=== PATIENT | male | born 1940 | race Caucasian/White ===

== ENCOUNTER 2019-07-22 12:28 | Inpatient (IN) | payer OTHER ==
[~2019-07-22] VITALS: Ht 175.3 cm; Wt 78.5 kg
[~2019-07-22 12:28] MED LIST: ALBU90OI; ALBU90OI INH; ASPI81CH; FLUSAL2505; FURO40; HYDACE5; POTCHL20ER; SIMV10 PO; SPIRIVA INHALER; TIOT18 IH
[2019-07-22] MEDS ORDERED: DABI150C PO (12:48)
[2019-07-22] MEDS ORDERED: TAMSULOSIN HCL0.4 M1 PO (12:48)
[2019-07-22] MEDS ORDERED: METFORMIN HCL500 M2 PO (12:49)
[2019-07-22] MEDS ORDERED: BREO ELLIPTA 21 EACH INH (13:04)
[2019-07-22] MEDS ORDERED: BEVESPI AEROS10.7 GM INH (13:05)
[2019-07-22] MEDS ORDERED: ROSUVASTATIN CA20 MG PO (13:06)
[2019-07-22] MEDS ORDERED: MONT10T PO (13:06)
[2019-07-22] MEDS ORDERED: VITAMIN B-121000 MCG PO (13:07)
[2019-07-22 15:24] LABS: Alanine Aminotransfer (ALT/SGP 14 U/L (12-78); Albumin, Blood 3.3 g/dL (3.4-5.0); Albumin/Globulin Ratio 0.8 (0.8-1.8); Alk Phos 60 U/L (50-136); Anion Gap 5 mmol/L (6-16); Aspartate Aminotrans (AST/SGOT 16 U/L (12-37); Bilirubin, Total 0.9 mg/dL (0.1-1.0); Blood Urea Nitrogen 17 mg/dL (8-24); Bun/Creatinine Ratio 21.1 (12.0-20.0); CO2, Blood 28 mmol/L (21-32); Chloride, Blood 102 mmol/L (98-108); Creatinine, Blood 0.81 mg/dL (0.60-1.20); Globulin, Blood 4.3 g/dL (2.2-4.0); Glomerular Filtration Rate >60 (60-); Glucose, Blood 128 mg/dL (70-99); Sodium, Blood 135 mmol/L (136-145); Total Protein, Blood 7.6 g/dL (6.4-8.2)
[2019-07-22 15:36] LABS: Troponin I <0.015 ng/mL (0.000-0.040)
[2019-07-22 15:44] LABS: BASOPHILS ABSOLUTE AUTO 0.07 K/mm3 (0.00-0.23); BASOPHILS PERCENT AUTO 1 % (0-2); EOSINOPHILS ABSOLUTE AUTO 0.06 K/mm3 (0.00-0.68); EOSINOPHILS PERCENT AUTO 0 % (0-6); Hematocrit 47.1 % (37.0-53.0); Hemoglobin 14.9 g/dL (13.5-17.5); IMMATURE GRAN ABSOLUTE AUTO 0.07 K/mm3 (0.00-0.10); IMMATURE GRAN PERCENT AUTO 1 % (0-1); LYMPHOCYTES ABSOLUTE AUTO 1.32 K/mm3 (0.84-5.20); LYMPHOCYTES PERCENT AUTO 9 % (21-46); MONOCYTES ABSOLUTE AUTO 1.56 K/mm3 (0.16-1.47); MONOCYTES PERCENT AUTO 10 % (4-13); Mean Corpuscular HGB 28.4 pg (26.0-34.0); Mean Corpuscular HGB Conc 31.6 g/dL (31.5-36.5); Mean Corpuscular Volume 90 fL (80-100); NEUTROPHILS ABSOLUTE AUTO 12.03 K/mm3 (1.96-9.15); NEUTROPHILS PERCENT AUTO 80 % (41-73); RDW Coefficient Variation 13.3 % (11.7-14.2); RDW Standard Deviation 43.9 fL (35.1-46.3); Red Blood Cell Count 5.25 M/mm3 (4.30-5.90); White Blood Cell Count 15.11 K/mm3 (4.00-11.30)
[2019-07-22 15:46] LABS: Base Excess Venous 2.5 mmol/L; Bicarbonate Venous 25.4 mmol/L (24.0-30.0); PCO2 Venous 56.3 mmHg (38-42); PO2 Venous 96.9 mmHg (38-42); pH Blood Venous 7.32 (7.34-7.37)
[2019-07-22 15:57] LABS: Mean Platelet Volume 10.1 fL (9.1-12.4); Platelet Count 250 K/mm3 (150-400)
--- NOTE | 2019-07-22 19:15 | NUR ---
ASSUMED CARE NOTE. ASSUMED CARE OF PT AT 191, RECEVIED REPORT FROM SHIMON CASTRO. PT ARRIVED TO UNIT AT 190 FROM ER VIA STRETCHER. PT AMBULATED TO BED WITH STAND BY ASSISTANCE. PT IS ALERT AND ORIENTEDX3. PT IS A POOR HISTORIAN REGARDING TIME/DATE OF CURRENT MEDS OR PAST MEDICAL HISTORY. HOWEVER, HE IS ABLE TO RECALL RECENT EVENTS. PT IS ON RA WITH SPO2 ABOVE 90%. PT HAS A PRODUCTIVE COUGH , COLLIER SPUTUM, SAMPLE SENT TO LAB. PT DENIES SOB/PAIN AT THIS TIME. PT IN AFIB , HR @ 104. CARDIZEM DRIP @ 5MG/HR. WILL CONTINUE TO MONITOR PT T/O SHIFT.
--- NOTE | 2019-07-22 21:39 | NUR ---
UPDATE: PT PLACED ON 2L OF 02 VIA NC , DUE TO DYSPNEA WITH EXERTION AND COUGHING.SPO2 READING 94%
--- NOTE | 2019-07-23 00:36 | NUR ---
UPDATE: GAVE SOLU-MEDROL TO PT VIA IV. THIS RN CALLED BACKED INTO ROOM. PT STATED " I THINK I AM HAVING A REACTION, I AM HOT AND SWEATY" PT DENIES SOB. VSS. AFEBRILE. NO RASH NOTED. AFTER A FEW MINUTES PT STATED " THE FEELING WENT AWAY, I AM GOOD" WILL CONTINUE TO MONITOR.
[2019-07-23 04:47] LABS: BASOPHILS ABSOLUTE AUTO 0.01 K/mm3 (0.00-0.23); BASOPHILS PERCENT AUTO 0 % (0-2); EOSINOPHILS PERCENT AUTO 0 % (0-6); Hematocrit 42.4 % (37.0-53.0); Hemoglobin 13.6 g/dL (13.5-17.5); IMMATURE GRAN ABSOLUTE AUTO 0.03 K/mm3 (0.00-0.10); IMMATURE GRAN PERCENT AUTO 0 % (0-1); LYMPHOCYTES ABSOLUTE AUTO 0.61 K/mm3 (0.84-5.20); LYMPHOCYTES PERCENT AUTO 6 % (21-46); MONOCYTES ABSOLUTE AUTO 0.38 K/mm3 (0.16-1.47); MONOCYTES PERCENT AUTO 4 % (4-13); Mean Corpuscular HGB 28.6 pg (26.0-34.0); Mean Corpuscular HGB Conc 32.1 g/dL (31.5-36.5); Mean Corpuscular Volume 89 fL (80-100); Mean Platelet Volume 9.1 fL (9.1-12.4); NEUTROPHILS ABSOLUTE AUTO 8.44 K/mm3 (1.96-9.15); NEUTROPHILS PERCENT AUTO 89 % (41-73); Platelet Count 266 K/mm3 (150-400); RDW Coefficient Variation 13.2 % (11.7-14.2); RDW Standard Deviation 43.2 fL (35.1-46.3); Red Blood Cell Count 4.76 M/mm3 (4.30-5.90); White Blood Cell Count 9.47 K/mm3 (4.00-11.30)
[2019-07-23 05:10] LABS: Anion Gap 4 mmol/L (6-16); Blood Urea Nitrogen 20 mg/dL (8-24); Bun/Creatinine Ratio 28.2 (12.0-20.0); CO2, Blood 28 mmol/L (21-32); Calcium, Blood 9.6 mg/dL (8.5-10.1); Chloride, Blood 105 mmol/L (98-108); Creatinine, Blood 0.71 mg/dL (0.60-1.20); Glomerular Filtration Rate >60 (60-); Glucose, Blood 216 mg/dL (70-99); Potassium, Blood 4.3 mmol/L (3.5-5.5); Sodium, Blood 137 mmol/L (136-145)
[2019-07-23 05:12] LABS: Thyroid Stimulating Hormone 0.544 uIU/mL (0.360-4.800)
--- NOTE | 2019-07-23 05:23 | NUR ---
SHIFT SUMMARY: SEE PREVIOUS NOTES. PT CONTINUES TO BE A/OX3, ON 2L OF O2 VIA NC WITH SPO2 ABOVE 90%. PT HAS BEEN PRODUCING LARGE AMOUNTS OF COLLIER SPUTUM. PT CONTINUES TO BE IN AFIB WITH HR BETWEEN 70-80. CARDIZEM DRIP HAS BEEN OFF SINCE 299, DUE TO HR DROPPING INTO THE 60'S. VSS. PT HAS BEEN AMBULATING TO BEDSIDE BATHROOM USING FWW/ SBA. PT HAS BEEN C/O OF TAKING LONG PAUSES TO FULLY EMPTY BLADDER, PT STATES THIS IS NORMAL. BED AT LOWEST LEVEL, CALL LIGHT WITHIN REACH. WILL CONTINUE TO MONITOR UNTIL REPORT IS GIVEN TO ONCOMING SHIFT.
--- NOTE | 2019-07-23 09:00 | NUR ---
ASSUMED CARE PT ALERT AND ORIENTED. VS STABLE. O2 SATS REMAIN ABOVE 90% ON RA AT THIS TIME. HR AFIB RATE INCREASING TO 120'S. CARDIZEM GTT AT 5ML/H. BP STABLE. WILL CONTINUE TO MONITOR CLOSELY.
--- NOTE | 2019-07-23 12:16 | NUR ---
Echocardiogram completed.
--- NOTE | 2019-07-23 17:01 | NUR ---
SHIFT SUMMARY PT ALERT AND ORIENTED. BP STABLE. O2 SATS HAVE REMAINED ABOVE 90% ON 2L NC OR 4L NC IF NEEEDED. HR AFIB. CARDIZEM GTT HAS BEEN OFF SINCE 1350 AND PT WAS STARTED ON ORAL CARDIZEM. HEART RATE HAS BEEN INCREASING THIS EVENING TO 120'S. DR. FRANCO NOTIFIED AND NEW ORDERS PROVIDED FOR AN EXTRA 60MG OF CARDIZEM ORAL AND TO RESTART CARDIZEM GTT IF RATE REMAINS ELEVATED. PT ABLE TO AMBULATE TO BATHROOM NEEDED TO VOID. PT DENIES PAIN. WILL CONTINUE TO MONITOR AND REPORT TO ONCOMING RN. CALL LIGHT IN REACH.
--- NOTE | 2019-07-23 20:40 | NUR ---
ASSUMED CARE ASSUMED CARE OF PT AT 1900, PATIENT ALERT AND AWAKE LYING IN BED IN NO SIGN OF DISTRESS. PATIENT DENIES PAIN, DENIES CHEST PRESSURE. ALL VSS, SATURATING AT 97% ON 3L NC. WILL TREAT PER EMAR AND CONTINUE TO MONITOR. CALL LIGHT IN REACH
[2019-07-24 04:04] LABS: BASOPHILS ABSOLUTE AUTO 0.02 K/mm3 (0.00-0.23); BASOPHILS PERCENT AUTO 0 % (0-2); EOSINOPHILS PERCENT AUTO 0 % (0-6); Hematocrit 41.5 % (37.0-53.0); Hemoglobin 13.3 g/dL (13.5-17.5); IMMATURE GRAN ABSOLUTE AUTO 0.06 K/mm3 (0.00-0.10); IMMATURE GRAN PERCENT AUTO 0 % (0-1); LYMPHOCYTES ABSOLUTE AUTO 0.53 K/mm3 (0.84-5.20); LYMPHOCYTES PERCENT AUTO 3 % (21-46); MONOCYTES ABSOLUTE AUTO 1.08 K/mm3 (0.16-1.47); MONOCYTES PERCENT AUTO 7 % (4-13); Mean Corpuscular HGB 28.5 pg (26.0-34.0); Mean Corpuscular Volume 89 fL (80-100); Mean Platelet Volume 9.1 fL (9.1-12.4); NEUTROPHILS ABSOLUTE AUTO 14.67 K/mm3 (1.96-9.15); NEUTROPHILS PERCENT AUTO 90 % (41-73); Platelet Count 326 K/mm3 (150-400); RDW Coefficient Variation 13.2 % (11.7-14.2); RDW Standard Deviation 43.5 fL (35.1-46.3); Red Blood Cell Count 4.67 M/mm3 (4.30-5.90); White Blood Cell Count 16.36 K/mm3 (4.00-11.30)
[2019-07-24 04:24] LABS: Anion Gap 4 mmol/L (6-16); Blood Urea Nitrogen 24 mg/dL (8-24); Bun/Creatinine Ratio 34.1 (12.0-20.0); CO2, Blood 28 mmol/L (21-32); Calcium, Blood 9.6 mg/dL (8.5-10.1); Chloride, Blood 106 mmol/L (98-108); Glomerular Filtration Rate >60 (60-); Glucose, Blood 223 mg/dL (70-99); Magnesium, Blood 2.2 mg/dL (1.6-2.4); Potassium, Blood 4.9 mmol/L (3.5-5.5); Sodium, Blood 138 mmol/L (136-145)
--- NOTE | 2019-07-24 07:35 | NUR ---
ASSUMED PATIENT CARE. PATIENT RESTING COMFORTABLY IN BED, SPOKE WITH NURSING STAFF,PROMOTED HYDRATION. NO SIGNS OF ACUTE DISTRESS,WCTM.
--- NOTE | 2019-07-24 18:40 | NUR ---
PATIENT IN A FIB THROUGHOUT THE DAY, NOW MED STATUS WITH NO TELE. PATIENT HAS PRODUCTIVBE COUGH, SPUTUM CULTURE SENT IN TO LAB THIS AFTERNOON. PATIENT HAD ELEVATED HEART RATE THROUGHOUT DAY, THIS AFTERNOON IN THE 110S. NO COMPLAINTS OF CHEST PAIN.
--- NOTE | 2019-07-24 19:34 | NUR ---
CARE ASSUMPTION PT A&O X4. MEDICAL NO TELE STATUS. VSS. SPO2 98% ON 3L HUMIDIFIED NC. DISCUSSED O2 TITRATION W/ PT W/ PT STATING "I WOULD LIKE TO KEEP IT AT 3. I'M MORE COMFORTABLE AT 3." PT ALSO REPORTS PRODUCTIVE COUGH, STATING, "WELL ONE WILL BE GREEN, AND THEN ANOTHER WILL BE CLEARER. IT'S NOT OFTEN IT WAS." INCENTIVE SPIROMETER AT BEDSIDE. WILL CONTINUE TO MONITOR AND PROVIDE CARE.
[2019-07-25 03:46] LABS: BASOPHILS ABSOLUTE AUTO 0.03 K/mm3 (0.00-0.23); BASOPHILS PERCENT AUTO 0 % (0-2); EOSINOPHILS PERCENT AUTO 0 % (0-6); Hematocrit 43.3 % (37.0-53.0); Hemoglobin 13.7 g/dL (13.5-17.5); IMMATURE GRAN ABSOLUTE AUTO 0.13 K/mm3 (0.00-0.10); IMMATURE GRAN PERCENT AUTO 1 % (0-1); LYMPHOCYTES ABSOLUTE AUTO 0.59 K/mm3 (0.84-5.20); LYMPHOCYTES PERCENT AUTO 4 % (21-46); MONOCYTES ABSOLUTE AUTO 0.85 K/mm3 (0.16-1.47); MONOCYTES PERCENT AUTO 6 % (4-13); Mean Corpuscular HGB 28.4 pg (26.0-34.0); Mean Corpuscular HGB Conc 31.6 g/dL (31.5-36.5); Mean Corpuscular Volume 90 fL (80-100); Mean Platelet Volume 9.2 fL (9.1-12.4); NEUTROPHILS ABSOLUTE AUTO 11.71 K/mm3 (1.96-9.15); NEUTROPHILS PERCENT AUTO 88 % (41-73); Platelet Count 333 K/mm3 (150-400); RDW Coefficient Variation 13.4 % (11.7-14.2); RDW Standard Deviation 43.9 fL (35.1-46.3); Red Blood Cell Count 4.82 M/mm3 (4.30-5.90); White Blood Cell Count 13.31 K/mm3 (4.00-11.30)
--- NOTE | 2019-07-25 04:19 | NUR ---
SHIFT SUMMARY PT MEDICAL NO TELE STATUS. A&O X4. VSS. SPO2 > 92% ON 3L HUMIDIFIED NC. PT CONTINUES TO HAVE OCCASSIONAL PRODUCTIVE COUGH. SPUTUM SAMPLE SENT TO LAB W/ NOTIFICATION FROM LAB REQUESTING RECOLLECTION. AWAITING NEW SAMPLE FROM PT. WILL CONTINUE TO MONITOR AND PROVIDE CARE UNTIL REPORT OFF TO DAY SHIFT RN.
--- NOTE | 2019-07-25 08:00 | NUR ---
pt laying in bed awake a/ox3, pleasant and cooperative with care, follows commands well, denies pain, lungs are course t/o, with exp wheezing t/o, resp even mildly labored, has a productive cough of [place] to clear sputum, is currently on 3 liters 02 via n/c, hrirr, no edema noted, ppp+1, cap refill <3 sec, vs stable, afebrile, iv site is clear and patent, btx4, abd flat soft nontender, voids without diff, skin c/w/d, maew, almas, call light in reach.
--- NOTE | 2019-07-25 11:38 | NUR ---
pt up to a chair in room, states he's feeling pretty good, will be transferring him to medical floor, geoffrey estrada. call light in reach.
--- NOTE | 2019-07-25 12:55 | NUR ---
pt will be transferred to medical floor via wheelchair. report was given to Janis CASTRO. will go with public health administrator.
--- NOTE | 2019-07-25 17:34 | NUR ---
shift summary PT AXO, PLEASANT AND COOPERATIVE WITH CARE. SBA TO BATHROOM. PT STATES THAT HE IS FEELING BETTER. VSS. IV PATENT AND SALINE LOCKED. PT TRANSFERRED FROM U 13 THIS SHIFT. NO CHANGES SINCE TRANSFER. BED IN LOW POSITION, CALL LIGHT WITHIN REACH.
--- NOTE | 2019-07-26 05:20 | NUR ---
SHIFT SUMMARY PT HAS HAD NO ACUTE CHANGES THIS SHIFT, PT COMPLAINED @ 2114 OF SOB, BOOSTED PT & ASSESSED VS, AND CALLED RT, THIS RN REMAINED W/PT FOR 10 MINS AND PT STATED SOB HAD RESOLVED W/REPOS (RT NOT YET AT BEDSIDE), PT HAD NO OTHER ISSUES THIS SHIFT & SLEPT T/O NIGHT. PT APPEARS TO BE SLEEPING AT THIS TIME CALL LIGHT IN REACH, WILL CONT TO MONITOR UNTIL REPORT GIVEN TO DAY RN.
[2019-07-26] MEDS ORDERED: TAMS.4ER PO (13:22)
[2019-07-26] MEDS ORDERED: DILT120ERA PO (13:22)
[2019-07-26] MEDS ORDERED: Prednisone10 MG PO (13:23)
[2019-07-26] MEDS ORDERED: GUAI600T33 PO (13:23)
--- NOTE | 2019-07-26 15:12 | NUR ---
discharge summary PATIENT IS PLEASANT, ALERT AND ORIENTED. IN THE ROOM WHEN DISCHARGE INSTRUCTIONS WERE GIVEN TO THE PATIENT. HE HAD A HOME O2 EVAL, HIS NEEDS DID NOT CHANGE FROM BASELINE. PATIENT CURRENTLY HAS 3L O2 PRN AT HOME. NO ACUTE CONCERNS PER PATIENT OR FAMILY MEMBER. MEDICATIONS WERE SENT TO THE PHARMACY OF CHOICE, AND PATIENT WAS WHEELED OUT BY NURSE.
== END 2019-07-26 13:46 | disposition home or self-care (01) | DRG 189 ==
LOC: ER 12:28 → PCU 17:39 → MEDS 17:39 → PCU 18:59 → MEDS 07-25 13:30
PROVIDERS: Emergency Medicine; Internal Medicine; ADMIT Internal Medicine
DX: J96.21 Acute and chronic respiratory failure with hypoxia (principal); F11.20 Opioid dependence, uncomplicated; J44.1 Chronic obstructive pulmonary disease with (acute) exacerbation; E78.5 Hyperlipidemia, unspecified; I25.10 Atherosclerotic heart disease of native coronary artery without angina pectoris; J40 Bronchitis, not specified as acute or chronic; I48.91 Unspecified atrial fibrillation; G89.4 Chronic pain syndrome; R33.9 Retention of urine, unspecified; R94.2 Abnormal results of pulmonary function studies; I10 Essential (primary) hypertension; Z74.09 Other reduced mobility; Z95.1 Presence of aortocoronary bypass graft; Z79.84 Long term (current) use of oral hypoglycemic drugs; Z87.891 Personal history of nicotine dependence; Z99.81 Dependence on supplemental oxygen
CPT/HCPCS: 36415; 71046; 80048; 80053; 82803; 83735; 83880; 84443; 84484; 85025; 87070; 87205; 93005; 93010; 93306; 94640; 94667; 94760; 94761; 96361; 96365; 96367; 96375; 96376; 97110; 97162; 97165; 97530; 97535; 99285-25; J2920; J2930; J3475; J7030